=== PATIENT | female | born 1955 | race Two or more races ===

== ENCOUNTER 2017-02-27 02:03 | Emergency (ER) | payer MEDICAID ==
[~2017-02-27] VITALS: Ht 165.1 cm; Wt 69.5 kg
[~2017-02-27 02:03] MED LIST: BISA10SU75 PR; DOCU-144 PO; UDMOM PO
[2017-02-27 02:12] VITALS: Ht 165.1 cm; Wt 69.5 kg
[2017-02-27] MEDS ORDERED: ONDANSETRON 4 MG INJ IV STA (02:57)
[2017-02-27] MEDS ORDERED: morphine 4 MG/ML VIAL IV STA (02:57)
[2017-02-27] MEDS ORDERED: SOD CHLORIDE 0.9% 1,000 ML IV STA (02:57)
--- NOTE | 2017-02-27 03:12 | ERD ---
ER Documentation Chief Complaint Chief Complaint abdominal pain/distention x 1 day HPI 61-year-old female is having lower abdominal pain which as well as suprapubic right lower quadrant left lower quadrant radiating to the bilateral lower back for the last 3 days. She denies any nausea or vomiting. She has no upper abdominal pain or chest pain. She has had chills with no fevers. No dysuria. ROS All systems reviewed and are negative except as per history of present illness. Medications Home Meds Active Scripts Hydrocodone/Acetaminophen (Tichnor 5-325 Tablet) 1 Each Tablet, 1 EACH PO Q6 for PAIN, #20 TAB Prov:BABATUNDE TINOCO DO 02/27/17 Naproxen* (Naproxen*) 500 Mg Tablet, 500 MG PO BID Y for PAIN, #20 TAB Prov:BABATUNDE TINOCO DO 02/27/17 Magnesium Hydroxide* (Dhillon' MOM*) 30 Ml Susp, 30 ML PO BID Y for CONSTIPATION for 14 Days Prov:LAVERNE GRAY 09/10/14 Docusate Sodium* (Colace*) 100 Mg Cap, 200 MG PO BID for 30 Days Prov:LAVERNE GRAY 09/10/14 Bisacodyl* (Bisacodyl*) 10 Mg Supp, 10 MG [place] DAILY Y for CONSTIPATION, #20 SUPP Prov:LAVERNE GRAY 09/10/14 Allergies Allergies: Coded Allergies: No Known Allergy (Unverified , 02/27/17) PMhx/Soc History of Surgery: Yes ( x 1) Anesthesia Reaction: No Hx Neurological Disorder: No Hx Respiratory Disorders: No Hx Cardiac Disorders: No Hx Psychiatric Problems: No Hx Miscellaneous Medical Probl: Yes (Left upper foot swelling/inflomation) Hx Alcohol Use: No Hx Substance Use: No Hx Tobacco Use: Yes Physical Exam Vitals Vital Signs Date Time Temp Pulse Resp B/P Pulse Ox O2 Delivery O2 Flow Rate FiO2 02/27/17 07:49 98.9 62 17 102/56 100 Room Air 02/27/17 07:11 95/65 02/27/17 06:08 65 11 92/66 97 Room Air 02/27/17 04:00 67 19 98/71 98 Room Air 02/27/17 02:12 98.0 66 20 117/71 100 Physical Exam Const: [] Mild distress, appears uncomfortable Head: Atraumatic Eyes: Normal Conjunctiva ENT: Normal External Ears, Nose and Mouth. Neck: Full range of motion..~ No meningismus. Resp: Clear to auscultation bilaterally Cardio: Regular rate and rhythm, no murmurs Abd: Soft, mild to moderate suprapubic and bilateral lower abdominal tenderness, non distended. Normal bowel sounds Skin: No petechiae or rashes Back: No midline or moderate flank tenderness that does not reproduce the patient's pain. Ext: No cyanosis, or edema Neur: Awake and alert 3 Psych: Normal Mood and Affect Result Diagram: 02/27/17 0320 02/27/17 0320 Results 24 hrs Laboratory Tests Test 02/27/17 03:15 02/27/17 03:20 Urine Color STRAW Urine Clarity CLEAR Urine pH 6.0 Urine Specific [place] 1.003 Urine Ketones NEGATIVEmg/dL Urine Nitrite NEGATIVEmg/dL Urine Bilirubin NEGATIVEmg/dL Urine Urobilinogen NEGATIVEmg/dL Urine Leukocyte Esterase NEGATIVELeu/ul Urine Microscopic RBC 1/HPF Urine Microscopic WBC 1/HPF Urine Hemoglobin 1+mg/dL Urine Glucose NEGATIVEmg/dL Urine Total Protein NEGATIVEmg/dl White Blood Count 12.110^3/ul Red Blood Count 3.9510^6/ul Hemoglobin 13.0g/dl Hematocrit 37.9% Mean Corpuscular Volume 95.9fl Mean Corpuscular Hemoglobin 32.9pg Mean Corpuscular Hemoglobin Concent 34.3g/dl Red Cell Distribution Width 13.0% Platelet Count 16418^3/UL Mean Platelet Volume 11.3fl Neutrophils % 52.5% Lymphocytes % 32.8% Monocytes % 7.3% Eosinophils % 6.4% Basophils % 0.7% Nucleated Red Blood Cells % 0.0/100WBC Neutrophils # 6.410^3/ul Lymphocytes # 4.010^3/ul Monocytes # 0.910^3/ul Eosinophils # 0.810^3/ul Basophils # 0.110^3/ul Nucleated Red Blood Cells # 0.010^3/ul Sodium Level 139mmol/L Potassium Level 3.8mmol/L Chloride Level 104mmol/L Carbon Dioxide Level 27mmol/L Anion Gap 12 Blood Urea Nitrogen 18mg/dl Creatinine 0.84mg/dl Glucose Level 91mg/dl Calcium Level 8.9mg/dl Total Bilirubin 0.2mg/dl Direct Bilirubin 0.00mg/dl Indirect Bilirubin 0.2mg/dl Aspartate Amino Transf (AST/SGOT) 19IU/L Alanine Aminotransferase (ALT/SGPT) 28IU/L Alkaline Phosphatase 85IU/L Total Protein 7.5g/dl Albumin 4.0g/dl Globulin 3.50g/dl Albumin/Globulin Ratio 1.14 Lipase 240U/L Current Medications Medications (Trade) Dose Ordered Sig/Stephani Route PRN Reason Start Time Stop Time Status Last Admin Dose Admin Sodium Chloride (NS) 1,000 ml @ 1,000 mls/hr Q1H STAT IV 02/27/17 02:57 02/27/17 03:56 DC 02/27/17 03:47 Morphine Sulfate (morphine) 4 mg ONCE STAT IV 02/27/17 02:57 02/27/17 03:03 DC 02/27/17 03:47 Ondansetron HCl (Zofran Inj) 4 mg ONCE STAT IV 02/27/17 02:57 02/27/17 03:03 DC 02/27/17 03:47 Procedures/MDM Abdominal pain likely 2/2 degenerating fibroid. Mild leukocytosis with no other signs of infection. She was given IV fluid and morphine which helped greatly with the pain. No signs of emergent intra abdominal pathology such as appendicitis, obstruction, or abscess. Negative urinalysis. She is in stable condition and will be discharged with instructions for gynecology follow up and prescriptions for Tichnor and Naproxen. Return precautions given. CT abd/pelvis interpretation: Degeneration uterine fibroid with uterus. No bowel obstruction, no free air or signs of perforations, no abnormal fat stranding, no fractures. Departure Diagnosis: Primary Impression: Acute abdominal pain Additional Impression: Uterine fibroid Condition: Stable BABATUNDE TINOCO DO Feb 27, 2017 03:12
[2017-02-27 04:17] LABS: BASOPHIL # 0.1 10^3/ul (0.0-0.1); BASOPHILS % 0.7 % (0.0-2.0); EOSINOPHILS # 0.8 10^3/ul (0.0-0.5); EOSINOPHILS % 6.4 % (0.0-7.0); HEMATOCRIT 37.9 % (37.0-47.0); LYMPHOCYTES % 32.8 % (15.0-51.0); MEAN CORPUSCULAR HEMOGLOBIN 32.9 pg (29.0-33.0); MEAN CORPUSCULAR HGB CONC 34.3 g/dl (32.0-37.0); MEAN CORPUSCULAR VOLUME 95.9 fl (82.0-101.0); MEAN PLATELET VOLUME 11.3 fl (7.4-10.4); MONOCYTE # 0.9 10^3/ul (0.3-0.9); MONOCYTES % 7.3 % (0.0-11.0); NEUTROPHIL # 6.4 10^3/ul (1.6-7.5); NEUTROPHILS % 52.5 % (39.0-77.0); PLATELET COUNT 278 10^3/UL (140-415); RED BLOOD COUNT 3.95 10^6/ul (4.20-5.40); WHITE BLOOD COUNT 12.1 10^3/ul (4.8-10.8)
[2017-02-27 04:42] LABS: ADD UMIC YES; UR ASCORBIC ACID NEGATIVE (NEGATIVE); UR BILIRUBIN (Dip) NEGATIVE (NEGATIVE); UR BLOOD (Dip) 1+ mg/dL (NEGATIVE); UR CLARITY CLEAR (CLEAR); UR COLOR STRAW (YELLOW); UR GLUCOSE (Dip) NEGATIVE (NEGATIVE); UR KETONES (Dip) NEGATIVE (NEGATIVE); UR LEUKOCYTE ESTERASE (Dip) NEGATIVE Leu/ul (NEGATIVE); UR NITRITE (Dip) NEGATIVE (NEGATIVE); UR RBC 1 /HPF (0-5); UR SPECIFIC GRAVITY (Dip) 1.003 (1.003-1.030); UR TOTAL PROTEIN (Dip) NEGATIVE (NEGATIVE); UR UROBILINOGEN (Dip) NEGATIVE (NEGATIVE)
[2017-02-27 05:10] LABS: ALBUMIN/GLOBULIN RATIO 1.14; CALCIUM 8.9 mg/dl (8.4-10.2); CREATININE 0.84 mg/dl (0.44-1.00); POTASSIUM 3.8 mmol/L (3.5-5.1); TOTAL PROTEIN 7.5 g/dl (6.1-8.1)
--- NOTE | 2017-02-27 05:46 | RADRPT ---
PROCEDURE: CT Abdomen and Pelvis without contrast. CLINICAL INDICATION: Lower abdominal pain. TECHNIQUE: CT scan of the abdomen and pelvis was performed on a multidetector high-resolution CT scanner. The patient was scanned without intravenous contrast. Coronal and sagittal reformatted osman ges were obtained from the axial source images. Images were reviewed on a high-resolution PACS works tation. The total exam CTDI equals 9.84 mGy and the total exam DLP equals 580.92 mGy-cm. DICOM images are available. One or more of the following dose reduction techniques were used: - Automated exposure control. - Adjustment of the mA and/or kV according to patient size. - Use of iterative reconstruction technique. COMPARISON: CT abdomen pelvis 09/09/2014. FINDINGS: CT Abdomen and Pelvis: Lung bases: 4 mm calcified granuloma within the subpleural lateral left lower lobe. Fibrotic bands w ithin the lingula and bilateral lower lobes. Dependent bibasilar subsegmental atelectasis. No eviden ce of a pleural effusion. No evidence of cardiomegaly or pericardial effusion. Solid organs: The liver, spleen, pancreas, adrenal glands are unremarkable. Biliary: The gallbladder is present. No evidence of intra or extrahepatic biliary ductal dilatation . GI: Stomach is partially collapsed. Small bowel loops are not dilated. The appendix is normal-appear ing. Moderate retained fecal matter is present within the proximal colon. No pericolonic inflammator y changes are present. : No evidence of hydronephrosis or space occupying renal mass. The urinary bladder is moderately distended. Peritoneum: No evidence of ascites or pneumoperitoneum. Pelvis: Again demonstrated is a partially calcified right adnexal mass contiguous with the right la teral aspect of the uterus which measures 6.0 x 2.6 x 4.7 cm previously measuring approximately 4.3 x 2.1 x 3.9 cm. Findings are favored to represent a pedunculated uterine fibroid. No evidence of asc ites. Lymph nodes: No pathologically enlarged lymphadenopathy. Vascular: Diffuse calcified plaque is present within the abdominal aorta and bilateral common iliac arteries. No evidence of an abdominal aortic aneurysm. Osseous structures: No acute fracture. No interval appearing aggressive appearing osteolytic or oste oblastic lesions. Moderately severe spondylotic changes L5-S1. Trace retrolisthesis of L5 relative t o S1. IMPRESSION: 1. Circumscribed mass within the right in the pelvis containing degenerating calcifications contiguo us with the right lateral uterus. Mass measures 6.0 x 2.6 x 4.7 cm and previously measured 4.3 x 2.1 x 3.9 cm. Findings are favored to represent a degenerating uterine fibroid. No associated ascites o r lymphadenopathy. 2. Lingula and bilateral lower lobe fibrosis. RPTAT: HRSR Physician Kimberly Date Time Electronically viewed and signed by Rupinder Keita Physician on 02/27/2017 05:46 RR/
[2017-02-27 06:32] LABS: BILIRUBIN,INDIRECT 0.2 mg/dl (0-1.1); BILIRUBIN,TOTAL 0.2 mg/dl (0.2-1.3)
[2017-02-27] MEDS ORDERED: HYDR-906 PO (06:32)
[2017-02-27] MEDS ORDERED: NAPR-688 PO (06:32)
[2017-02-27 07:49] VITALS: BP 102/56; PULSE 62; RESP 17; TEMP 98.9
== END 2017-02-27 07:49 | disposition home or self-care (01) ==
LOC: E/R 02:03
DX: D25.9 Leiomyoma of uterus, unspecified (principal); Z87.891 Personal history of nicotine dependence
CPT/HCPCS: 36415; 74176; 80053; 81001; 83690; 85025; 96374; 96375; J2270; J2405; J7030; Z7502

== ENCOUNTER 2017-07-08 04:58 | Emergency (ER) | END 2017-07-08 07:23 | disposition home or self-care (01) ==